=== PATIENT | male | born 1950 | race Caucasian/White ===

== ENCOUNTER → 2021-08-23 | Outpatient (CLI) | payer OTHER ==
--- NOTE | 2021-08-23 11:57 | REP ---
INDICATION: IMPINGEMENT SYNDROME. COMPARISON: Radiographs 05/24/2021. TECHNIQUE: Coronal oblique T1, T2 fat sat, sagittal oblique T2 fat sat, axial T2 fat sat, gradient echo. FINDINGS: Rotator cuff: There is tendinopathy/tendinitis of the supraspinatus and subscapularis tendons. There is a partial undersurface tear of the supraspinatus tendon. Acromioclavicular joint: There are moderate hypertrophic degenerative changes of the acromioclavicular joint with mild fluid in the joint, with subacromial spurring. Acromion: Type 2 Biceps Tendon: Within the bicipital groove with mild surrounding fluid which may indicate tenosynovitis. Hill Sach's deformity: None. Deltoid muscle: No abnormal signal. Biceps labral complex: There is a complex tear of the biceps labral complex. Labrum: There is a complex SLAP tear of the superior labrum. There is a tear of the posterior labrum. Cartilage: There is mild to moderate chondromalacia at the glenohumeral joint. Bone marrow: No abnormal signal. Joint fluid: There is a small joint effusion. IMPRESSION: Tendinopathy/tendinitis of the supraspinatus and subscapularis tendons. There is a partial undersurface tear of the supraspinatus tendon. There are moderate hypertrophic degenerative changes of the acromioclavicular joint with subacromial spurring and a type 2 acromion. Mild fluid surrounding the biceps tendon within the bicipital groove may represent mild tenosynovitis. Complex tear biceps labral complex with associated SLAP tear. There is a tear of the posterior labrum. <Electronically signed by Janusz Vasquez > 08/23/21 [id number]
== END ==
LOC: M RAD 07:16
PROVIDERS: ATTEND Orthopaedic Surgery Sports Medicine
DX: S46.811A Strain of other muscles, fascia and tendons at shoulder and upper arm level, right arm, initial encounter (principal); M77.8 Other enthesopathies, not elsewhere classified; M75.41 Impingement syndrome of right shoulder; X58.XXXA Exposure to other specified factors, initial encounter; Y92.9 Unspecified place or not applicable; Y99.9 Unspecified external cause status